=== PATIENT | male | born 1970 | race Caucasian/White ===

== ENCOUNTER 2022-09-01 10:09 | Outpatient (CLI) | payer OTHER, SELFPAY ==
[2022-09-01 14:16] LABS: Albumin* 4.5 g/dL (3.3-5.0); Chloride* 104 mmol/L (96-114); Sodium* 141 mmol/L (135-149)
[2022-09-01 14:17] LABS: Potassium* 4.6 mmol/L (3.6-5.1)
[2022-09-01 14:18] LABS: Cholesterol* 171 mg/dL (90-199)
[2022-09-01 14:19] LABS: Alkaline Phosphatase* 84 U/L (40-150); Aspartate Amino Transferase* 30 U/L (12-35); Bilirubin Total* 0.6 mg/dL (0.1-1.5); Blood Urea Nitrogen* 13 mg/dL (7-30); Carbon Dioxide* 26 mmol/L (20-32); Creatinine* 0.6 mg/dL (0.5-1.5); Estimated Glomerular Filt Rate 117 ml/min; Glucose* 93 mg/dL (60-115); Total Protein* 7.4 g/dL (6.0-8.3); Triglycerides* 177 mg/dL (40-149)
[2022-09-01 14:20] LABS: Alanine Aminotransferase* 42 U/L (4-50); Calcium* 8.9 mg/dL (8.4-10.6); HDL Cholesterol* 35 mg/dL (>=40); LDL Cholesterol Calculated 101 mg/dL (<100)
[2022-09-01 14:45] LABS: Hepatitis C Virus Antibody* Negative (Negative)
== END 2022-09-01 10:10 | disposition home or self-care (01) ==
PROVIDERS: PCP Family Medicine; Visit Provider Family Medicine
DX: Z00.00 Encounter for general adult medical examination without abnormal findings (principal); R03.0 Elevated blood-pressure reading, without diagnosis of hypertension; Z13.6 Encounter for screening for cardiovascular disorders; Z13.1 Encounter for screening for diabetes mellitus; Z83.3 Family history of diabetes mellitus; Z11.59 Encounter for screening for other viral diseases
CPT/HCPCS: 80053; 80061; 86803

== ENCOUNTER 2022-09-25 12:43 | Outpatient (CLI) | payer OTHER, SELFPAY ==
--- NOTE | 2022-09-25 13:00 | MR_ITS ---
[address] [address] Phone:?[phone] Fax:?[phone] Referring Physician Information: Miroslava Apodaca M.D. [address] [facility] [address] Phone:?[phone] Fax:?[phone] Patient:?Javad Calles D.O.B:?1970 Sex:?Male Phone:?[phone] [facility] MRN:?[id number] Exam Date:?09/25/2022 ? EXAM: MRI of the LEFT SHOULDER, without contrast CLINICAL INFORMATION: Male, 52 years old, with left shoulder pain. INDICATION: Evaluate shoulder pain. PRIOR SURGERY: None reported. PLAIN FILMS: None available. COMPARISONS: No prior MRIs available. TECHNICAL INFORMATION: Using a 1.5T MR scanner and a localizing surface coil: coronal obliques: PD, T2, STIR sagittal obliques: PD, T2 axials: PD, T2 SEDATION: None CONTRAST: None FINDINGS: Bones: Proximal humerus: No fracture or marrow edema/pathology. No humeral Hill-Sachs or reverse Hill-Sachs lesion/impaction or contusion. Glenoid: No fracture or marrow edema/pathology. No osseous Bankart lesion. Rotator cuff and muscles/tendons: Supraspinatus: Full width, full-thickness tearing of supraspinatus, with tendon retraction to the mid humeral head. No muscle atrophy. Infraspinatus: Marked infraspinatus tendinopathy with partial-thickness articular surface tearing over an area measuring 1.5 cm anteroposterior by 1.3 cm mediolateral and involving approximately 50% of the tendon thickness (coronal STIR series 4 image 14 and sagittal T2 series 8 image 6). No muscle atrophy. Teres minor: No tendinopathy, tear or atrophy. Subscapularis: Moderate tendinopathy of the superior distal subscapularis with partial-thickness interstitial tearing over an area measuring 7 x 5 mm and involving approximately one third of the tendon thickness (sagittal PD series 7 image 9 and axial PD series 3 image 15). Deltoid: No strain or atrophy. Coracoacromial arch: Acromion morphology: The acromion has type II morphology. No discrete subacromial osseous spur or os acromiale. Acromiohumeral space: The acromiohumeral space is within normal limits. Coracohumeral space: The coracohumeral space is within normal limits. Acromioclavicular joint: Joint: Marked AC joint arthropathy, which encroaches upon the underlying supraspinatus (sagittal PD series 7 image 5 and coronal T2 series 6 image 9). Ligaments: Coracoclavicular ligaments are intact. Bursae: Subacromial-subdeltoid: Moderate subacromial-subdeltoid bursal fluid, which reflects accumulation from the full-thickness rotator cuff tear. Subcoracoid: No convincing subcoracoid bursal thickening/bursitis. Biceps tendon: The long head of the biceps tendon is present within the bicipital groove, but becomes medially subluxated at the superior aspect of the lesser tuberosity. Moderate tendinopathy and fraying of the intra-articular biceps long head tendon, without split/tear. Glenohumeral joint: Effusion/cyst: Small glenohumeral joint effusion. Articular cartilage: Humeral head: No osteochondral abnormalities. Glenoid: No osteochondral abnormalities. Loose bodies: No discrete intra-articular body within the joint. Labrum:?No discrete labral tear or paralabral cyst identified on this non- arthrographic study. Inferior glenohumeral ligament/axillary pouch:?Intact. The axillary pouch is normal in thickness and signal. No evidence of adhesive capsulitis or capsular injury. IMPRESSION: 1. Full-width, full-thickness tear of supraspinatus, with tendon retraction to the mid humeral head. 2. Marked infraspinatus tendinopathy with a 1.3 x 1.5 cm area of intermediate grade partial-thickness articular surface tearing. 3. Findings in keeping with a biceps angelica injury: -Moderate subscapularis tendinopathy with a small area of low-grade interstitial tearing at the superior leading edge of the tendon. -Slight medial subluxation of the biceps long head tendon at the superior aspect of the lesser tuberosity. -Moderate tendinopathy and fraying of the intra-articular biceps long head tendon. 4. Moderate-marked AC joint arthropathy, which encroaches upon the underlying supraspinatus. Additionally, there is moderate subacromial-subdeltoid bursal fluid. However, the acromiohumeral space is normal. 5. No full-thickness chondral defect or evidence of glenohumeral joint osteoarthritis. 6. No labral tear or paralabral cyst. BC Electronically signed on 09/26/2022 7:33:00 AM by Iglesia Noe M.D.
--- NOTE | 2022-09-25 13:45 | MR_ITS ---
[address] [address] Phone:?[phone] Fax:?[phone] Referring Physician Information: Miroslava Apodaca M.D. [address] [facility] [address] Phone:?[phone] Fax:?[phone] Patient:?Javad Calles D.O.B:?1970 Sex:?Male Phone:?[phone] [facility] MRN:?[id number] Exam Date:?09/25/2022 ? EXAM: MRI CERVICAL SPINE WITHOUT CONTRAST CLINICAL INFORMATION: 52-year-old man with upper extremity radiculopathy. TECHNICAL INFORMATION: MRI cervical spine was obtained on 1.5 Felicia magnet including sagittal T2, T1, STIR, and gradient echo images. Axial T2 and gradient echo images. INTERPRETATION: There is straightening of the cervical lordotic curvature. No marrow edema within the cervical vertebral bodies. No loss of vertebral body height. Cerebellar tonsils are normal in position and morphology. No abnormal T2 signal within the cervical cord. The vertebral artery flow voids are unremarkable. C2-3: No cord deformity or central spinal canal stenosis. The foramen are patent and the facet joints are unremarkable. C3-4: Mild degenerative disc disease and disc bulge. No cord deformity or central spinal canal stenosis. Uncinate spurring on the left with mild left foraminal stenosis. Moderate left facet arthropathy. C4-5: Moderate to severe degenerative disc disease with disc bulge and marginal osteophyte. Ventral cord flattening with mild central spinal canal stenosis. Bilateral uncinate spurring with severe right and moderate left foraminal stenosis. Mild right facet arthropathy. C5-6: Mild degenerative disc disease and disc bulge. Ventral cord flattening and mild central spinal canal stenosis. Bilateral uncinate spurring with mild bilateral foraminal stenosis. Mild right facet arthropathy. C6-7: Mild degenerative disc disease and disc bulge. No cord deformity or central spinal canal stenosis. Bilateral uncinate spurring with severe right and mild left foraminal stenosis. Mild right facet arthropathy. C7-T1: No cord deformity or central spinal canal stenosis. The foramen are patent. Mild bilateral facet arthropathy. CONCLUSION: 1. Ventral cord flattening and mild central spinal canal stenosis at C4-5 and C5-6. 2. Multilevel foraminal stenosis which is severe on the right at C4-5 and C6-7. Moderate on the left at C4-5. 3. Multilevel facet arthropathy as detailed above. LPB Electronically signed on 09/27/2022 8:08:00 AM by Cira Ferrell M.D.
== END 2022-09-25 12:44 | disposition home or self-care (01) ==
LOC: MRI 12:44
PROVIDERS: PCP Family Medicine; Visit Provider Family Medicine
DX: M25.512 Pain in left shoulder (principal); S46.912A Strain of unspecified muscle, fascia and tendon at shoulder and upper arm level, left arm, initial encounter; M54.10 Radiculopathy, site unspecified
CPT/HCPCS: 72141; 73221

== ENCOUNTER 2022-10-23 11:30 | Outpatient (RCR) | payer OTHER, SELFPAY | END 2022-12-29 13:13 | disposition home or self-care (01) | PROVIDERS: PCP Family Medicine; Visit Provider Family Medicine | DX: M54.16 Radiculopathy, lumbar region (principal); M25.511 Pain in right shoulder; M25.512 Pain in left shoulder; M54.50 Low back pain, unspecified; R53.1 Weakness; R20.2 Paresthesia of skin; Z51.89 Encounter for other specified aftercare | CPT/HCPCS: 97012; 97032; 97110; 97161 ==

== ENCOUNTER 2022-12-01 06:03 | Day surgery (SDC) | payer OTHER, SELFPAY ==
[2022-12-01] VITALS (14 sets, daily range): BP systolic 107–141; BP diastolic 61–94; PULSE 66–90; RESP 14–16; TEMP 36.2–36.5; O2SAT 88–99; BMI 40.1
--- NOTE | 2022-12-01 06:11 | SUR.PREOP ---
home covid test negative.
[2022-12-01] MEDS: SODIUM CHLORIDE 0.9 % (FLUSH) 10 ML SYRINGE IVF (06:30)
[2022-12-01] MEDS: LACTATED RINGERS 1000 ML 1,000 ML 100 ML IV ×2 (06:30→09:05)
[2022-12-01] MEDS: MIDAZOLAM HCL 1 MG/ML inj IVP (07:29)
[2022-12-01] MEDS: fentaNYL 100 MCG/2 ML inj IVP (07:29)
--- NOTE | 2022-12-01 07:34 | SUR.PREOP ---
TIME?OUT:?0728 PT/RN/MDA?VERIFICATION?OF?SURGICAL?SITE,?PROCEDURE,?AND?CONSENT OBTAINED?PRIOR?TO?INVASIVE?PROCEDURE.
[2022-12-01] MEDS: CEFAZOLIN 2 GM in 0.9 % SODIUM CHLORIDE Mini-bag 100 ML IVPB (07:35)
[2022-12-01] MEDS: EPINEPHrine 1 MG in SODIUM CHLORIDE IRRIG SOLUTION 3,000 ML 9003 MG IRRIGATION ×11 (08:10→09:35)
--- NOTE | 2022-12-01 09:52 | PM.ORPRC ---
Procedure Note Date of procedure: 12/01/22 Procedure: PREOPERATIVE DIAGNOSES: 1. Left shoulder rotator cuff tear. 2. Left shoulder subacromial impingement syndrome. POSTOPERATIVE DIAGNOSES: 1. Left shoulder rotator cuff tear - full-thickness supraspinatus, upper border subscapularis 2. Left shoulder AC degenerative joint disease, primary, moderate-severe 3. Left shoulder anterior and superior labral tearing 4. 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 5. Left shoulder subacromial impingement syndrome. NAME OF OPERATION: 1. Left shoulder arthroscopic rotator cuff repair - upper border subscapularis and full-thickness anterior supraspinatus 2. Left shoulder arthroscopic distal clavicle excision 3. Left shoulder arthroscopic extensive glenohumeral debridement 4. Left shoulder arthroscopic bursectomy, subacromial decompression/partial acromioplasty. SURGEON: Juan Denny MD BUSINESS INTERN: Rajat Leblanc PA-C. Of note, a skilled administrative sales assistant was critical for this case to aide in patient positioning, suture manipulation, arm positioning, instrument positioning, and closure. ANESTHESIA: General plus preoperative supraclavicular block. EBL: Less than 50 mL IMPLANTS: Arthrex 4.75 mm BioComposite SwiveLock suture anchor (x1 subscap); 2.6 mm FiberTak RC 0 (x2); 5.5 mm BioComposite SwiveLock suture anchor (x2) COMPLICATIONS: None evident INDICATIONS: The patient is a pleasant, 52-year-old male who has experienced left shoulder pain that has been increasing in recent time. Physical exam and imaging were consistent with a rotator cuff tear. Given their findings, as well as the weakness and pain, and inadequate response to nonoperative management, recommendation was made for surgery. FINDINGS: Exam under anesthesia revealed stable shoulder with excellent range of motion. The diagnostic arthroscopy revealed grade 3 chondromalacia anterior central humeral head with some loose chondral flaps. The Subscapularis tendon was torn from its upper border with mild-moderate retraction. The long head of the biceps tendon was intact without partial-thickness tearing. It did not appear to be subluxed out of the bicipital groove. Even upon probing and tugging, it did not sublux/dislocate. The superior rotator cuff tendon was found to be torn full thickness at the anterior margin measuring approximately 15 mm in greatest dimension with mild-moderate retraction. The labrum was torn in the anterior and superior aspects. No loose bodies were identified within the pouch or subscapularis recess. PROCEDURE: Following a thorough discussion of risks, benefits, and alternatives, consent was obtained and the left shoulder was marked. The patient was brought to the operating room and placed supine on the operating table. Induction of anesthesia was completed after preoperative supraclavicular block was administered in preop holding. Appropriate time out was performed identifying proper patient, site, and procedure. 2 g IV Ancef was administered within 1 hour of incision preoperatively. The left upper extremity was prepped and draped in the appropriate sterile fashion using ChloraPrep prep. This was after the patient was positioned in the beach chair with their head in neutral alignment and all bony prominences well padded. The shoulder was insufflated with 20mL of normal saline via an 18g spinal needle from a posterior approach. An 11 blade skin incision allowed a blunt trochar to be inserted and diagnostic arthroscopy to be performed with the findings as noted above. An anterior portal was established with an outside in technique. This allowed the probe to be inserted and confirm the diagnostic arthroscopic findings. The shaver was then inserted and allowed debridement of anterior and superior labrum. Additionally, debridement was performed of the humeral head chondral tissue and humeral head lesser tuberosity bony prominence/fragment. Following this, the upper border subscapularis was repaired after debriding the lesser tuberosity with the shaver and [place] cautery. Subscapularis was captured in horizontal mattress fashion with a fiber tape suture. The tails were brought to a single anchor in the lesser tuberosity with excellent reapproximation of the subscap tendon and good excursion/tension. Thereafter, the subacromial space was entered. Here, a complete bursectomy and partial acromioplasty/subacromial decompression was performed with a combination of radiofrequency ablator, the shaver, and a 5.5 mm bur. Additionally, distal clavicle excision was performed with the bur. 8 mm of distal clavicle was resected based on the width of our bur. Further inspection of the supraspinatus and infraspinatus rotator cuff was performed. This identified the tear as noted above. The margins of the tear were debrided, and the greater tuberosity was debrided with a combination of the apollo cautery, shaver, and bur on reverse setting. After gentle decortication, a speed bridge configuration with a medial angelica was engaged. 2 medial anchors were placed and the sutures were passed with a fiber link. The knotless mechanism eyelet suture tails were then retrieved and tied and cinched down for the medial angelica purpose. A tail from each of the medial row anchor FiberTapes were then brought to a lateral row anchor along with 1 of the tails from the medial angelica. Excellent reapproximation of the tissue to the greater tuberosity was achieved with broad footprint compression. Prior to anchor party bus driver removal, the eyelet sutures were tugged on for each anchor and found that the anchor had excellent stability within the bone. The shoulder was placed through range of motion and found to be stable. The rotator cuff was re-probed and found to be stable. Instruments were removed. Excess fluid was drained, closure performed with 4-0 Monocryl and Steri-Strips. Dressings were applied. Sling was applied. The patient was awoken from anesthesia and transferred to the PACU in stable condition. A skilled administrative sales assistant was critical for this case to aid in patient positioning, limb positioning, skill to manipulate arthroscopic instruments and camera, suture management, patient safety, and closure. PLAN: 1. Elbow, forearm, wrist and digit range of motion of operative extremity as tolerated. 2. Encouraged ice. 3. Percocet for pain as needed. 4. Sling at all times except for ROM and showering. 5. Follow up with PA visit in 1-2 weeks for wound check. Initiate physical therapy following that visit for passive range of motion. Initiate active assisted range of motion at 3-4 weeks. May do pendulums now.
--- NOTE | 2022-12-01 10:13 | W.ANESCHARGE ---
Anesthesia Charges Start Date/Time Anesthesia Start Date: 12/01/22 Anesthesia Start Time: 07:34 Stop Date/Time Anesthesia Stop Date: 12/01/22 Anesthesia Stop Time: 10:12
--- NOTE | 2022-12-01 10:18 | P.NB_ITS ---
Nerve Block Nerve Block Time Seen by Provider: 07:28 Date Seen: 12/01/22 Type of block requested by surgeon for post-operative analgesia: supraclavicular Side: left Time out performed: Yes Verification of patient name: Yes Verification of date of : Yes Site marking: site marked Name of person performing procedure: Cuong Continuous monitoring Was continuous monitoring of O2 sat, B/P, computer recycling worker, recorded every 15 minutes?: Yes Procedure Checklist: sterile prep, needles and gloves Ultrasound guided. Images saved: Yes Medications given in 5ml increments after negative aspiration: Ropivicaine %: 0.5 mL: 20 Needle gauge: 22 Decadron (mg): 10 Precedex (mcg): 25 Patient tolerated procedure well: Yes Block Charges Block Charge (with Pro Fee): Brachial Plexus Use of Ultrasound Machine for Block: Yes- US Guidance/pain block
--- NOTE | 2022-12-01 10:19 | W.ANESCHARGE ---
Anesthesia Charges Start Date/Time Anesthesia Start Date: 12/01/22 Anesthesia Start Time: 07:34 Stop Date/Time Anesthesia Stop Date: 12/01/22 Anesthesia Stop Time: 10:12
[2022-12-01] MEDS: ONDANSETRON 2 MG/ML inj 4 MG IVP (10:48)
== END 2022-12-01 12:39 | disposition home or self-care (01) ==
PROVIDERS: PCP Family Medicine; Visit Provider Orthopaedic Surgery Sports Medicine
PROC: (CPT 29805; principal; 2022-12-01 07:30)
DX: M75.102 Unspecified rotator cuff tear or rupture of left shoulder, not specified as traumatic (principal); M75.42 Impingement syndrome of left shoulder; M19.012 Primary osteoarthritis, left shoulder; S43.432A Superior glenoid labrum lesion of left shoulder, initial encounter; M94.212 Chondromalacia, left shoulder; G89.18 Other acute postprocedural pain
CPT/HCPCS: 29827; 29826; 29823; 29824; 01630; 64415; 76942; C1713; J0171; J0690; J1100; J2250; J2405; J2704; J3010; J7120; L3670

== ENCOUNTER 2023-05-28 09:11 | Outpatient (CLI) | payer OTHER, SELFPAY | END 2023-05-28 09:12 | disposition home or self-care (01) | LOC: NFLDREF 22:46 | PROVIDERS: PCP Family Medicine; Referring Provider Family Medicine; Visit Provider Family Medicine | DX: M27.61 Osseointegration failure of dental implant (principal) | CPT/HCPCS: 82306 ==

== ENCOUNTER 2023-06-25 07:00 | Outpatient (CLI) | payer OTHER, SELFPAY ==
--- NOTE | 2023-06-25 07:15 | MR_ITS ---
[facility] [address] [facility] [address] Phone:?[phone] Fax:?[phone] Referring Physician Information: Juan Denny M.D. [address] [facility] [address] Phone:?[phone] Fax:?[phone] Patient:Alana Calles D.O.B:?1970 Sex:?Male Phone:?[phone] [facility] MRN:?[id number] Exam Date:?06/25/2023 EXAM: MRI OF THE RIGHT SHOULDER CLINICAL INFORMATION: The patient is a 52-year-old with right shoulder pain. Evaluate for rotator cuff tear. PRIOR SURGERY: None reported. COMPARISON STUDIES: There are no prior studies available for comparison. TECHNICAL INFORMATION: Using a 1.5T MR scanner and a localizing shoulder surface coil: 3.0 mm?coronal obliques: PD, T2, STIR 3.0 mm?sagittal obliques: PD, T2 3.0 mm?axials: PD, T2 FINDINGS: Articular/Extraarticular collections: Effusion: Mild. Subacromial/subdeltoid: Mild fluid is seen within the subacromial/subdeltoid bursa, in keeping with mild bursitis. Subcoracoid: No evidence for bursitis. Osseous structures: Proximal humerus: No evidence for bony injury to the proximal humerus can be seen. There is no evidence for greater tuberosity fracture. No Hill-Sachs or reverse Hill-Sachs deformity is seen. Glenoid: No acute bony abnormality of the glenoid fossa or glenoid neck can be seen. Acromioclavicular joint: Moderate changes of acromioclavicular joint arthrosis are present and can be seen on coronal series 4 image 10 and on sagittal series 8 image 14. Coracoacromial arch: Acromion morphology: Type II. No evidence for os acromiale. Acromiohumeral space: Within normal limits. Coracohumeral space: Within normal limits. Rotator cuff and deltoid: Supraspinatus: Moderate changes of supraspinatus tendinosis can be seen. There is superimposed full-thickness tearing of the supraspinatus tendon fibers seen on coronal series 4 image 12 and on sagittal series 8 image 6, measuring approximately 15 mm in greatest dimension. No atrophic changes of the supraspinatus muscle belly are present. Infraspinatus: Moderate infraspinatus tendinosis can be seen. There is no evidence for full or partial-thickness tearing. No atrophic changes of the infraspinatus muscle belly are identified. Teres minor: No evidence for tendinosis, tearing, or associated muscle belly atrophy. Subscapularis: Moderate subscapularis tendinosis can be seen. There is no full- thickness tearing or retraction. No atrophic changes of the subscapularis muscle belly are noted. Deltoid: No evidence for strain or tearing. Biceps tendon: Tendinosis, flattening, splitting, and medial subluxation of the long head of the biceps can be seen. There is no evidence for biceps rupture or erik dislocation. Glenohumeral joint and labrum: Articular Cartilage: No chondral injuries along the articular surfaces of the glenohumeral articulation can be seen. No osteoarthritic changes are identified. Labrum: Degeneration, blunting, and irregularity of the glenoid labrum can be seen with poorly defined tearing of the superior portion. No paralabral ganglion cyst formation is identified. Capsular Soft Tissues: Nonspecific thickening of the capsular structures of the glenohumeral articulation can be seen in the region of the axillary recess and rotator cuff interval. The findings may relate to changes of adhesive capsulitis. CONCLUSION: 1. Moderate changes of supraspinatus, infraspinatus, and subscapularis tendinosis with superimposed full-thickness tearing of the supraspinatus tendon fibers as described above. 2. Moderate acromioclavicular joint arthrosis. 3. Tendinosis, splitting, and medial subluxation of the long head of the biceps. 4. No osteoarthritic changes of the glenohumeral articulation are seen. 5. Degeneration of the glenoid labrum with poorly defined tearing of the superior portion. 6. Nonspecific capsular thickening, in keeping with adhesive capsulitis. 7. Mild glenohumeral joint effusion and mild subacromial/subdeltoid bursitis. AEC Electronically signed on 06/25/2023 12:50:00 PM by Juancho Beverly M.D.
== END 2023-06-25 07:01 | disposition home or self-care (01) ==
LOC: MRI 07:00
PROVIDERS: PCP Family Medicine; Visit Provider Orthopaedic Surgery Sports Medicine
DX: M25.511 Pain in right shoulder (principal); M75.101 Unspecified rotator cuff tear or rupture of right shoulder, not specified as traumatic; M19.011 Primary osteoarthritis, right shoulder; S46.911A Strain of unspecified muscle, fascia and tendon at shoulder and upper arm level, right arm, initial encounter; M75.01 Adhesive capsulitis of right shoulder; M25.411 Effusion, right shoulder
CPT/HCPCS: 73221

== ENCOUNTER 2023-11-04 15:00 | Emergency (ER) | payer OTHER, BC, SELFPAY ==
[2023-11-04 15:11] VITALS: BP 114/71; PULSE 102; RESP 16; TEMP 36.3; O2SAT 98; BMI 38.6
--- NOTE | 2023-11-04 15:22 | ED_ITS ---
HPI - GI Bleed General Chief complaint: GI Bleed Stated complaint: Rectal bleed Time Seen by Provider: 11/04/23 15:14 Related Data Home Medications Medication Instructions Recorded Confirmed ibuprofen 200 mg tablet (Advil) 600 mg PO Q8H PRN 06/16/23 08/18/23 Previous Rx's Medication Instructions Recorded lisinopril 10 mg tablet 10 mg PO QDAY #90 tabs 11/20/22 Allergies Allergy/AdvReac Type Severity Reaction Status Date / Time No Known Allergies Allergy Unknown Verified 08/18/23 10:38 PFSH PFS Medical History Sleep apnea ?G47.30 - Sleep apnea, unspecified (ICD-10) Spondylolisthesis at L5-S1 level (06/28/13) ?M43.17 - Spondylolisthesis, lumbosacral region (ICD-10) Fracture of lumbar vertebra (06/28/13) ?S32.009A - Unspecified fracture of unspecified lumbar vertebra, initial encounter for closed fracture (ICD-10) Surgical History Status post arthroscopy of left shoulder (12/01/22) ?Z98.890 - Other specified postprocedural states (ICD-10) S/P ORIF (open reduction internal fixation) fracture ?Z98.890 - Other specified postprocedural states (ICD-10) ?Z87.81 - Personal history of (healed) traumatic fracture (ICD-10) History of lumbar fusion ?Z98.1 - Arthrodesis status (ICD-10) Family History Father Alcohol abuse Daughter Diabetes Mother Breast cancer Other Depression Social History Narrative: Has 3 children Non-smoker -Alicia Smoking Status: Never smoker Do you use any of these nicotine containing products: None Second hand tobacco smoke exposure: No How often do you have a drink containing alcohol: monthly or less Alcohol type: beer How many standard drinks containing alcohol do you have on a typical day: 1 or 2 How often do you have six or more drinks on one occasion: Never AUDIT-C Alcohol total score: 1 Non-prescribed substance use: denies use Caffeine: No (soda/coffee) Little interest or pleasure in doing things: not at all Feeling down, depressed, or hopeless: not at all Exam Const: Vital Signs, click to edit/add: Vital Signs - 24 hr 11/04/23 15:11 Temperature 97.3 F L Pulse Rate [Pulse Oximeter] 102 H Respiratory Rate 16 Blood Pressure [Ri ght Upper Arm] 114/71 Pulse Oximetry 98 Oxygen Delivery Me thod Room Air Course Vital Signs Vital signs: Initial Vital Signs Temperature 97.3 F L 11/04/23 15:11 Temperature Source Temporal Artery Scan 11/04/23 15:11 Pulse Rate 102 H 11/04/23 15:11 Pulse Rhythm Regular 11/04/23 15:11 Respiratory Rate 16 11/04/23 15:11 Blood Pressure 114/71 11/04/23 15:11 Blood Pressure Mean 85 11/04/23 15:11 Blood Pressure Position Sitting 11/04/23 15:11 Pulse Oximetry 98 11/04/23 15:11 Oxygen Delivery Method Room Air 11/04/23 15:11 Vital Signs Temperature 97.3 F L 11/04/23 15:11 Pulse Rate 102 H 11/04/23 15:11 Respiratory Rate 16 11/04/23 15:11 Blood Pressure 114/71 11/04/23 15:11 Pulse Oximetry 98 11/04/23 15:11 Oxygen Delivery Method Room Air 11/04/23 15:11 Temperature 97.3 F L 11/04/23 15:11 Pulse Rate 102 H 11/04/23 15:11 Respiratory Rate 16 11/04/23 15:11 Blood Pressure 114/71 11/04/23 15:11 Pulse Oximetry 98 11/04/23 15:11 Oxygen Delivery Method Room Air 11/04/23 15:11 Discharge Plan Discharge Clinical Impression: Acute anal fissure Patient Disposition: Home, Self-Care Condition: Stable Additional Instructions: Soapy Sitz bath as 3 to 4 times a day for the next couple of days, off work for 2 days, may use MiraLax 1 capful in water twice a day to 3 times a day until having bowel movements. Follow-up with primary care in the next several days not improving changes or concerns. If continued bleeding then recommend follow- up with primary care as well return to ED if lightheaded or dizzy. Activity Level: Light activity Discharge Diet: High Fiber Prescriptions: No Action lisinopril 10 mg tablet 10 mg PO QDAY Qty: 90 3RF ibuprofen [Advil] 200 mg tablet 600 mg PO Q8H PRN Follow Up/Referrals: Miroslava Apodaca MD [Primary Care Provider] - Stand Alone Forms: [employer] Info Instructions
--- NOTE | 2023-11-04 15:23 | ED_ITS ---
HPI - General Adult General Chief complaint: GI Bleed Stated complaint: Rectal bleed Time Seen by Provider: 11/04/23 15:14 History of Present Illness HPI narrative: Patient is a 53 year white male who was feeling constipated had some rectal pain is even unable to pass a solid bowel movement for day or 2 and he put a syringe in his bottom and had the cap off it and knows needle or other sharp object but since then noticed some bleeding. He was just injecting some warm water. He is not on any blood thinners he denies any prior history of hemorrhoids or other concerns. Does have a history of hypertension he is on lisinopril. Has not had tremendous problems with constipation. Has really no abdominal pain. He is not lightheaded or dizzy. Related Data Home Medications Medication Instructions Recorded Confirmed ibuprofen 200 mg tablet (Advil) 600 mg PO Q8H PRN 06/16/23 08/18/23 Previous Rx's Medication Instructions Recorded lisinopril 10 mg tablet 10 mg PO QDAY #90 tabs 11/20/22 Allergies Allergy/AdvReac Type Severity Reaction Status Date / Time No Known Allergies Allergy Unknown Verified 08/18/23 10:38 Review of Systems Status of ROS: Reports: 6 or more systems reviewed and unremarkable except as noted in History and below [facility] Medical History Sleep apnea ?G47.30 - Sleep apnea, unspecified (ICD-10) Spondylolisthesis at L5-S1 level (06/28/13) ?M43.17 - Spondylolisthesis, lumbosacral region (ICD-10) Fracture of lumbar vertebra (06/28/13) ?S32.009A - Unspecified fracture of unspecified lumbar vertebra, initial encounter for closed fracture (ICD-10) Surgical History Status post arthroscopy of left shoulder (12/01/22) ?Z98.890 - Other specified postprocedural states (ICD-10) S/P ORIF (open reduction internal fixation) fracture ?Z98.890 - Other specified postprocedural states (ICD-10) ?Z87.81 - Personal history of (healed) traumatic fracture (ICD-10) History of lumbar fusion ?Z98.1 - Arthrodesis status (ICD-10) Family History Father Alcohol abuse Daughter Diabetes Mother Breast cancer Other Depression Social History Narrative: Has 3 children Non-smoker -Alicia Smoking Status: Never smoker Do you use any of these nicotine containing products: None Second hand tobacco smoke exposure: No How often do you have a drink containing alcohol: monthly or less Alcohol type: beer How many standard drinks containing alcohol do you have on a typical day: 1 or 2 How often do you have six or more drinks on one occasion: Never AUDIT-C Alcohol total score: 1 Non-prescribed substance use: denies use Caffeine: No (soda/coffee) Little interest or pleasure in doing things: not at all Feeling down, depressed, or hopeless: not at all Exam Narrative: Exam Narrative: Objective: Patient's vital signs are within normal limits He is alert or x3 Abdomen benign Rectal area shows a small what appears to be an anal fissure perhaps created by trauma from the plastic implement. I am able to do a digital rectal exam and he has got firm stool up high in the rectum there is no palpable hemorrhoids no external visible hemorrhoids at this time there is small amount of bright red blood around his anal area. No palpable foreign body. Const: Vital Signs, click to edit/add: Vital Signs - 24 hr 11/04/23 15:11 Temperature 97.3 F L Pulse Rate [Pulse Oximeter] 102 H Respiratory Rate 16 Blood Pressure [Ri ght Upper Arm] 114/71 Pulse Oximetry 98 Oxygen Delivery Me thod Room Air Course Vital Signs Vital signs: Initial Vital Signs Temperature 97.3 F L 11/04/23 15:11 Temperature Source Temporal Artery Scan 11/04/23 15:11 Pulse Rate 102 H 11/04/23 15:11 Pulse Rhythm Regular 11/04/23 15:11 Respiratory Rate 16 11/04/23 15:11 Blood Pressure 114/71 11/04/23 15:11 Blood Pressure Mean 85 11/04/23 15:11 Blood Pressure Position Sitting 11/04/23 15:11 Pulse Oximetry 98 11/04/23 15:11 Oxygen Delivery Method Room Air 11/04/23 15:11 Vital Signs Temperature 97.3 F L 11/04/23 15:11 Pulse Rate 102 H 11/04/23 15:11 Respiratory Rate 16 11/04/23 15:11 Blood Pressure 114/71 11/04/23 15:11 Pulse Oximetry 98 11/04/23 15:11 Oxygen Delivery Method Room Air 11/04/23 15:11 Temperature 97.3 F L 11/04/23 15:11 Pulse Rate 102 H 11/04/23 15:11 Respiratory Rate 16 11/04/23 15:11 Blood Pressure 114/71 11/04/23 15:11 Pulse Oximetry 98 11/04/23 15:11 Oxygen Delivery Method Room Air 11/04/23 15:11 Medical Decision Making MDM Narrative Medical decision making narrative: [age] year white male with constipation with attempted self enema with a plastic syringe with likely anal fissure. Likely traumatic. At this point I would recommend MiraLax from above as I would not recommend another rectal enema or other concern. Advised him did not use any home remedies such as he did advised. If he wishes to to treat constipation perhaps Metamucil or MiraLax to be appropriate to start. He was comfortable this he has not had trouble with this in the past. Would increase fiber and fluid in his diet would have him t chayo MiraLax 1 capful twice a day for the next couple of days recommend off work for couple of days.. Recommend Sitz baths 3 to 4 times a day in soapy water. Return if problems or concerns. Patient of note had normal sphincter tone had no palpable rinse that I could feel in his rectal area. Discharge Plan Discharge Clinical Impression: Acute anal fissure Patient Disposition: Home, Self-Care Condition: Stable Additional Instructions: Soapy Sitz bath as 3 to 4 times a day for the next couple of days, off work for 2 days, may use MiraLax 1 capful in water twice a day to 3 times a day until having bowel movements. Follow-up with primary care in the next several days not improving changes or concerns. If continued bleeding then recommend follow- up with primary care as well return to ED if lightheaded or dizzy. Activity Level: Light activity Discharge Diet: High Fiber Prescriptions: No Action lisinopril 10 mg tablet 10 mg PO QDAY Qty: 90 3RF ibuprofen [Advil] 200 mg tablet 600 mg PO Q8H PRN Follow Up/Referrals: Miroslava Apodaca MD [Primary Care Provider] - Stand Alone Forms: [employer] Info Instructions
== END 2023-11-04 15:35 | disposition home or self-care (01) ==
LOC: ED 15:33
PROVIDERS: Emergency Provider Family Medicine; PCP Family Medicine
DX: K60.0 Acute anal fissure (principal)
CPT/HCPCS: 99282; 99283

== ENCOUNTER 2023-11-19 14:16 | Outpatient (CLI) | payer OTHER, BC, SELFPAY | END 2023-11-19 14:17 | disposition home or self-care (01) | PROVIDERS: PCP Family Medicine; Visit Provider Family Medicine | DX: Z01.818 Encounter for other preprocedural examination (principal); I10 Essential (primary) hypertension; E66.01 Morbid (severe) obesity due to excess calories; Z13.6 Encounter for screening for cardiovascular disorders; Z13.1 Encounter for screening for diabetes mellitus; Z12.5 Encounter for screening for malignant neoplasm of prostate | CPT/HCPCS: 80053; 80061; 82043; 82570; G0103 ==

== ENCOUNTER 2024-01-04 06:01 | Day surgery (SDC) | payer OTHER, BC, SELFPAY ==
[2024-01-04] VITALS (18 sets, daily range): BP systolic 114–136; BP diastolic 64–86; PULSE 64–90; RESP 16–18; TEMP 36.1–36.8; O2SAT 92–98; BMI 38.9
[2024-01-04] MEDS: LACTATED RINGERS 1000 ML 1,000 ML 100 ML IV ×2 (06:20→08:26)
[2024-01-04] MEDS: SODIUM CHLORIDE 0.9 % (FLUSH) 10 ML SYRINGE IVF (06:20)
[2024-01-04] MEDS: fentaNYL 100 MCG/2 ML inj IVP (07:06)
[2024-01-04] MEDS: MIDAZOLAM HCL 1 MG/ML inj IVP (07:06)
--- NOTE | 2024-01-04 07:07 | SUR.PREOP ---
TIME?OUT:?05 PT/RN/MDA?VERIFICATION?OF?SURGICAL?SITE,?PROCEDURE,?AND?CONSENT OBTAINED?PRIOR?TO?INVASIVE?PROCEDURE.
--- NOTE | 2024-01-04 07:10 | W.PM.H&PU ---
History & Physical Update History & Physical Update H&P Reviewed and patient assessed: No changes noted
[2024-01-04] MEDS: CEFAZOLIN 2 GM in 0.9 % SODIUM CHLORIDE Mini-bag 100 ML IVPB (07:44)
--- NOTE | 2024-01-04 09:05 | W.PM.NB ---
Nerve Block Nerve Block Time Seen by Provider: 07:10 Date Seen: 01/04/24 Type of block requested by surgeon for post-operative analgesia: supraclavicular Side: right Time out performed: Yes Verification of patient name: Yes Verification of date of : Yes Site marking: site marked Name of person performing procedure: Cuong Continuous monitoring Was continuous monitoring of O2 sat, B/P, bridal sales consultant, recorded every 15 minutes?: Yes Procedure Checklist: sterile prep, needles and gloves Ultrasound guided. Images saved: Yes Medications given in 5ml increments after negative aspiration: Ropivicaine %: 0.5 mL: 20 Needle gauge: 22 Decadron (mg): 10 Precedex (mcg): 25 Patient tolerated procedure well: Yes Block Charges Block Charge (with Pro Fee): Brachial Plexus Use of Ultrasound Machine for Block: Yes- US Guidance/pain block
--- NOTE | 2024-01-04 09:06 | W.ANESCHARGE ---
Anesthesia Charges Start Date/Time Anesthesia Start Date: 01/04/24 Anesthesia Start Time: 07:19 Stop Date/Time Anesthesia Stop Date: 01/04/24 Anesthesia Stop Time: 09:46
[2024-01-04] MEDS: EPINEPHrine 1 MG in SODIUM CHLORIDE IRRIG SOLUTION 3,000 ML 9003 MG IRRIGATION ×3 (09:12→09:16)
[2024-01-04] MEDS: EPINEPHrine 1 MG in SODIUM CHLORIDE IRRIG SOLUTION 3,000 ML 1000 MG IRRIGATION (09:17)
--- NOTE | 2024-01-04 09:25 | PM.ORPRC ---
Procedure Note Date of procedure: 01/04/24 Procedure: PREOPERATIVE DIAGNOSES: 1. Right shoulder rotator cuff tear. 2. Right shoulder AC degenerative joint disease, primary, moderate-severe 3. Right shoulder long head of biceps subluxation out of the bicipital groove. 4. Right shoulder anterior labral tearing. 5. Right shoulder subacromial impingement syndrome. POSTOPERATIVE DIAGNOSES: 1. Right shoulder rotator cuff tear. 2. Right shoulder AC degenerative joint disease, primary, moderate-severe 3. Right shoulder long head of biceps subluxation out of the bicipital groove. 4. Right shoulder anterior labral tearing. 5. Right shoulder humeral head articular chondral defect with loose chondral flaps anteriorly adjacent to the bicipital groove 6. Right shoulder subacromial impingement syndrome. NAME OF OPERATION: 1. Right shoulder arthroscopic rotator cuff repair (subscap x1; supraspinatus x2 anchors) 2. Right shoulder arthroscopic distal clavicle excision 3. Right shoulder arthroscopic extensive glenohumeral debridement 4. Right shoulder arthroscopic bursectomy, subacromial decompression/partial acromioplasty. SURGEON: Juan Denny MD SUPERVISOR COLD ROLLING: Rajat Leblanc PA-C. Of note, a skilled catering assistant was critical for this case to aide in patient positioning, suture manipulation, arm positioning, instrument positioning, and closure. ANESTHESIA: General plus preoperative supraclavicular block. EBL: 25 mL IMPLANTS: Arthrex 4.75 mm BioComposite SwiveLock suture anchor (x3) COMPLICATIONS: None evident INDICATIONS: The patient is a pleasant, 53-year-old male who has experienced right shoulder pain that has been increasing in recent time. Physical exam and imaging were consistent with a rotator cuff tear. Given their findings, as well as the weakness and pain, and inadequate response to nonoperative management, recommendation was made for surgery. FINDINGS: Exam under anesthesia revealed stable shoulder with excellent range of motion. The diagnostic arthroscopy revealed grade 4 chondromalacia anterior humeral head with loose chondral flaps as well as posterior superior humeral head with some bone exposed. The Subscapularis tendon was torn from its upper border with moderate retraction. The long head of the biceps tendon was relatively intact including the origin down through the intra-articular portion that could be visualized. Under direct visualization and probing the biceps was properly located within the bicipital groove. The superior rotator cuff tendon was found to be torn full-thickness in the anterior to midportion of the supraspinatus over region approximately 10 mm A-P and 8 mm medial-lateral. The labrum was degeneratively frayed in the anterior and superior aspects. No loose bodies were identified within the pouch or subscapularis recess. PROCEDURE: Following a thorough discussion of risks, benefits, and alternatives, consent was obtained and the right shoulder was marked. The patient was brought to the operating room and placed supine on the operating table. Induction of anesthesia was completed after preoperative supraclavicular block was administered in preop holding. Appropriate time out was performed identifying proper patient, site, and procedure. 2 g IV Ancef was administered within 1 hour of incision preoperatively. The right upper extremity was prepped and draped in the appropriate sterile fashion using ChloraPrep prep. This was after the patient was positioned in the beach chair with their head in neutral alignment and all bony prominences well padded. The shoulder was insufflated with 20mL of normal saline via an 18g spinal needle from a posterior approach. An 11 blade skin incision allowed a blunt trochar to be inserted and diagnostic arthroscopy to be performed with the findings as noted above. An anterior portal was established with an outside in technique. This allowed the probe to be inserted and confirm the diagnostic arthroscopic findings. The shaver was then inserted and allowed debridement of the anterior and superior labrum as well as the loose chondral flaps on the anterior and superior humeral head and some humeral head bone in the posterior superior portion the long head of biceps was probed and found to be intact and within the groove and without significant tearing-including all the way to its origin. Following this, the upper border subscapularis was repaired after debriding the lesser tuberosity with the shaver and [place] cautery. Subscapularis was captured in horizontal mattress fashion with a fiber tape suture. The tails were brought to a single anchor in the lesser tuberosity with excellent reapproximation of the subscap tendon and good excursion/tension. Thereafter, the subacromial space was entered. Here, a complete bursectomy and partial acromioplasty/subacromial decompression was performed with a combination of radiofrequency ablator, the shaver, and a 5.5 mm bur. Additionally, distal clavicle excision was performed with the bur. 8 mm of distal clavicle was resected based on the with of our bur. Further inspection of the supraspinatus and infraspinatus rotator cuff was performed. This identified the tear as noted above. The margins of the tear were debrided, and the greater tuberosity was debrided with a combination of the [place] cautery, shaver, and bur on reverse setting. [ After gentle decortication, a medial row anchor was placed with a single FiberTape. The 2 FiberTape tails and the 2 eyelet tails were all passed independently. These 4 tails were then brought to a single lateral row anchor. The eyelet suture from the lateral anchor was utilized to reapproximate a small dog ear in the anterior portion. The rotator cuff showed excellent reapproximation of the greater tuberosity with good security upon probing. Prior to anchor sulky driver removal, the eyelet sutures were tugged on for each anchor and found that the anchor had excellent stability within the bone. The shoulder was placed through range of motion and found to be stable. The rotator cuff was re-probed and found to be stable. Instruments were removed. Excess fluid was drained, closure performed with 4-0 Monocryl and Steri-Strips. Dressings were applied. Sling was applied. The patient was awoken from anesthesia and transferred to the PACU in stable condition. A skilled catering assistant was critical for this case to aid in patient positioning, limb positioning, skill to manipulate arthroscopic instruments and camera, suture management, patient safety, and closure. PLAN: 1. Elbow, forearm, wrist and digit range of motion as tolerated. 2. Encouraged ice. 3. Oxycodone for pain as needed. 4. Sling at all times except for ROM and showering. 5. Follow up with PA visit in 1-2 weeks for wound check. Initiate physical therapy following that visit for passive range of motion. Initiate active assisted range of motion at 5-6 weeks. May do pendulums now.
--- NOTE | 2024-01-04 09:43 | W.ANESCHARGE ---
Anesthesia Charges Start Date/Time Anesthesia Start Date: 01/04/24 Anesthesia Start Time: 07:19 Stop Date/Time Anesthesia Stop Date: 01/04/24 Anesthesia Stop Time: 09:46
--- NOTE | 2024-01-04 10:23 | SUR.PHASEII ---
pt states he feels warm, his skin is warm to the touch, warm blankets given. pt sipping on water. in room
[2024-01-04] MEDS: METOCLOPRAMIDE HCL 5 MG/ML INJ 10 MG IVP (10:43)
== END 2024-01-04 12:00 | disposition home or self-care (01) ==
PROVIDERS: PCP Family Medicine; Visit Provider Orthopaedic Surgery Sports Medicine
PROC: (CPT 29805; principal; 2024-01-04 07:15)
DX: M75.121 Complete rotator cuff tear or rupture of right shoulder, not specified as traumatic (principal); M19.011 Primary osteoarthritis, right shoulder; M75.41 Impingement syndrome of right shoulder; S43.431A Superior glenoid labrum lesion of right shoulder, initial encounter; S46.111A Strain of muscle, fascia and tendon of long head of biceps, right arm, initial encounter; G89.18 Other acute postprocedural pain
CPT/HCPCS: 29827; 29826; 29823; 29824; 01630; 64415; 76942; C1713; J0171; J0690; J1100; J2250; J2371; J2405; J2704; J2710; J2765; J2795; J3010; J7120; L3670

== ENCOUNTER 2024-05-26 16:45 | Outpatient (RCR) | payer BC, OTHER, SELFPAY | END 2024-05-27 07:06 | disposition home or self-care (01) | PROVIDERS: PCP Family Medicine; Visit Provider Orthopaedic Surgery Sports Medicine | DX: Z98.890 Other specified postprocedural states (principal); Z51.89 Encounter for other specified aftercare | CPT/HCPCS: 97032; 97110; 97140; 97162 ==

== ENCOUNTER 2024-11-02 07:06 | Outpatient (CLI) | payer BC, SELFPAY ==
--- NOTE | 2024-11-02 07:15 | MR_ITS ---
[facility] [address] [facility] [address] Phone:?[phone] Fax:?[phone] Referring Physician Information: Juan Denny M.D. [address] [facility] [address] Phone:?[phone] Fax:?[phone] Patient:Alana Calles D.O.B:?1970 Sex:?Male Phone:?[phone] [facility] MRN:?[id number] Exam Date:?11/02/2024 EXAM: MRI of the RIGHT KNEE, without contrast CLINICAL: Evaluate for medial meniscal tear. COMPARISONS: X-rays 10/12/2024. TECHNICAL: Multiplanar multisequence MRI of the right knee was obtained. SEDATION: None. CONTRAST: None. FINDINGS: Ligaments: ACL: Intact and unremarkable. PCL: Intact and unremarkable. MCL: Intact and unremarkable. LCL: Intact and unremarkable. Posterolateral corner: Popliteus, biceps femoris, iliotibial band, and the popliteofibular ligament appear intact. Posteromedial corner: Semimembranosus, pes anserine tendons and posterior oblique ligament appear intact. Extensor mechanism: Patellar tendon: Intact, without tendinopathy. Quadriceps tendon: Intact, without tendinopathy. Retinacula: Medial and lateral retinacula are intact. Fat pads: Unremarkable infrapatellar Hoffa's, quadriceps and prefemoral fat pads. Patellofemoral joint: Patella: There is full-thickness chondral loss involving the lateral patellar facet extending into the patellar median ridge with mild underlying subchondral reactive edema. Trochlea: There is mild grade 2 chondral loss involving the central trochlea. Medial compartment: Medial meniscus: There is complex tearing of the posterior root as seen on sagittal series 6 images 19-21. Degenerative signal changes involve the remainder of the posterior horn. There is 3 mm of medial extrusion of the peripheral body segment medial meniscus. Medial cartilage: There is full-thickness chondral loss seen to involve the weightbearing medial femoral condyle on sagittal series 6 image 22-25. Focal chondral fissure involving the medial tibial plateau on coronal series 8 image 20. Lateral compartment: Lateral meniscus: No evidence of discrete meniscal tear or meniscal displacement. Lateral cartilage: There is heterogeneity of the lateral tibial plateau cartilage with grade 3 chondral loss involving the posterior lateral tibial plateau on sagittal series 6 image 12-13. Focal deep chondral fissure involves the lateral tibial plateau on sagittal series 6 image 12-13. Small segment of grade 3 chondral loss involves the weightbearing lateral femoral condyle adjacent to the posterior horn lateral meniscus on sagittal series 6 image 11 and coronal series 8 image 21-23. Knee joint: Effusion: Small to moderate-sized right knee effusion. Intra-articular bodies:?No convincing bodies identified. Popliteal cyst: Small to moderate-sized with leakage of fluid extending inferiorly along the periphery of the medial gastrocnemius muscle. Bones: There is mild reactive marrow edema involving the lateral aspect of the posterior medial tibial plateau adjacent to the posterior root medial meniscal tear. No evidence of fracture. IMPRESSION: 1. Complex tearing of the posterior root medial meniscus with associated medial extrusion of the peripheral body segment medial meniscus into the medial gutter. 2. Tricompartmental arthrosis/chondral loss as above. 3. Small to moderate-sized joint effusion. 4. Small to moderate-sized popliteal cyst with leakage of fluid extending inferiorly along the peripheral medial gastrocnemius muscle. JULIANNA Electronically signed on 11/02/2024 10:22:00 AM by Dylan Bruno D.O.
== END 2024-11-02 07:07 | disposition home or self-care (01) ==
LOC: MRI 07:08
PROVIDERS: PCP Family Medicine; Visit Provider Orthopaedic Surgery Sports Medicine
DX: S83.206A Unspecified tear of unspecified meniscus, current injury, right knee, initial encounter (principal); S83.222A Peripheral tear of medial meniscus, current injury, left knee, initial encounter; M25.462 Effusion, left knee
CPT/HCPCS: 73721

== ENCOUNTER 2025-03-02 15:27 | Outpatient (CLI) | payer BC, SELFPAY | END 2025-03-02 15:28 | disposition home or self-care (01) | PROVIDERS: PCP Family Medicine; Visit Provider Family Medicine | DX: Z00.01 Encounter for general adult medical examination with abnormal findings (principal); I10 Essential (primary) hypertension; Z12.5 Encounter for screening for malignant neoplasm of prostate | CPT/HCPCS: 80053; 80061; 82043; 82570; G0103 ==

== ENCOUNTER 2025-03-14 13:44 | Outpatient (CLI) | payer BC, SELFPAY ==
--- NOTE | 2025-03-14 14:30 | MR_ITS ---
[facility] [address] [facility] [address] Phone:?[phone] Fax:?[phone] Referring Physician Information: Juan Denny M.D. [address] [facility] [address] Phone:?[phone] Fax:?[phone] Patient:Alana Calles D.O.B:?1970 Sex:?Male Phone:?[phone] [facility] MRN:?[id number] Exam Date:?03/14/2025 EXAM: MRI of the LEFT KNEE, without contrast CLINICAL INFORMATION: Male, 54 years old, with left knee pain INDICATION: Evaluate for medial meniscus tear and effusion PRIOR SURGERY: None reported. PLAIN FILMS: None available. COMPARISONS: No prior MRIs available. TECHNICAL INFORMATION: Using a 1.5T MR scanner and a localizing surface coil: sagittals: PD, PDFS coronals: PD, T2FS axials: PD, PDFS SEDATION: None CONTRAST: None FINDINGS: Knee joint: Effusion: Moderate size left knee effusion with synovitis. Popliteal cyst: Small popliteal cyst. Fluid along the medial head of the gastrocnemius suggests partial rupture and leaking fluid. Loose bodies: None. Subcutaneous and extra-articular soft tissues: Unremarkable. Ligaments: ACL: Intact ACL anteromedial and posterolateral bundles, without sprain or tear. PCL: Intact PCL, without acute or chronic injury. MCL: Thickening of the proximal superficial MCL may suggest residua of chronic injury. LCL: Intact LCL, without injury. Posterolateral corner: No posterolateral corner soft tissue injury. Popliteus, biceps femoris, iliotibial band, popliteofibular ligament and lateral gastrocnemius are intact. Posteromedial corner: No posteromedial corner soft tissue injury. Semimembranosus, pes anserine tendons and posterior oblique ligament are without injury, tendinopathy or bursitis. Extensor mechanism: Patellar tendon: Intact, without tendinopathy. Quadriceps tendon: Intact, without tendinopathy. Retinacula: Medial and lateral retinacula are intact. Fat pads: Unremarkable infrapatellar Hoffa's, quadriceps and prefemoral fat pads. Medial compartment: Medial meniscus: Ill-defined horizontal superior articular surface signal irregularity at the junction of the posterior body and posterior horn measuring 1.0 cm in length (sagittal series 6 image 10). Some degeneration of the meniscus at the level of the posterior root without high-grade posterior root disruption. There is 2 mm peripheral meniscal extrusion at the level of the body. Additionally, there is signal heterogeneity far periphery of the posterior body/posterior horn junction (sagittal series 6 image 8). Medial femoral condyle: Grade IV chondromalacia along the central weightbearing medial femoral condyle measuring approximately 2.9 x 1.9 cm. Minimal peripheral osteophytosis. Medial tibial plateau: Grade 2 chondral thinning and heterogeneity along the central medial tibial plateau. Lateral compartment: Lateral meniscus: No articular surface, meniscosynovial junction or root tear. No displacement, extrusion or parameniscal cyst. Lateral femoral condyle: No chondromalacia or osteochondral abnormality. Lateral tibial plateau: Region of grade III chondromalacia along the posterior lateral tibial plateau measures approximately 1.0 x 1.3 cm. Patellofemoral joint: Patella: The patella is laterally tilted in relation to the trochlea with mild subluxation. There is grade IV chondromalacia of the lateral patellar facet extending to involve the central midline ridge measuring approximately 3.8 x 2.4 cm with moderate peripheral osteophytosis. Grade II/III chondromalacia of the central into the medial patella. Trochlea: Region of grade II/III chondromalacia with delamination involving the central trochlea measuring approximately 1.3 x 0.8 cm. Minimal trochlear osteophytosis. Proximal tibiofibular joint: Unremarkable, without evidence of ligament sprain injury, joint effusion or adjacent marrow edema. Bones: Marrow signal hyperintensity is noted along the weightbearing surface of the medial femoral condyle with subtle subchondral bone plate irregularity and flattening. This is in the region of full-thickness chondral loss. Additional marrow signal hyperintensity in the medial tibial plateau. No discrete fracture line. IMPRESSION: 1. Poorly defined horizontal superior articular surface signal irregularity/tearing at the junction of the posterior body posterior horn medial meniscus with degeneration extending to the level of the posterior root. Additional signal abnormality at the periphery suggesting no skull capsular sprain. 2 mm peripheral meniscal extrusion. 2. Grade IV chondromalacia along the central weightbearing medial femoral condyle measuring 2.9 x 1.9 cm underlying subchondral bone plate irregularity and marrow reactive changes. Additional marrow reactive changes in the adjacent tibial plateau with grade 2 chondral thinning. 3. Broad-based grade IV chondromalacia of the lateral patellar facet extending to the central midline ridge with osteophytosis. Small region of grade II/III chondromalacia with delamination of the central trochlea. 4. Region of grade III chondromalacia along the posterior lateral tibial plateau measuring 1.0 x 1.3 cm. 5. Suggested residua of chronic incomplete sprain injury of the proximal superficial MCL. 6. Moderate size knee joint effusion with synovitis. KME Electronically signed on 03/15/2025 8:21:00 PM by Anu King M.D.
== END 2025-03-14 13:45 | disposition home or self-care (01) ==
LOC: MRI 13:45
PROVIDERS: PCP Family Medicine; Visit Provider Orthopaedic Surgery Sports Medicine
DX: M25.562 Pain in left knee (principal); S83.242A Other tear of medial meniscus, current injury, left knee, initial encounter; M94.262 Chondromalacia, left knee; M25.462 Effusion, left knee
CPT/HCPCS: 73721